=== PATIENT | male | born 1980 | race African-American/Black ===

== ENCOUNTER 2024-09-01 08:23 | Outpatient (CLI) | payer BC, OTHER, SELFPAY | END 2024-09-01 08:24 | disposition home or self-care (01) | PROVIDERS: PCP Family Medicine; Visit Provider Family Medicine | DX: I10 Essential (primary) hypertension (principal); Z13.6 Encounter for screening for cardiovascular disorders; Z13.0 Encounter for screening for diseases of the blood and blood-forming organs and certain disorders involving the immune mechanism | CPT/HCPCS: 80048; 80061 ==